=== PATIENT | female | born 1950 | race Caucasian/White ===

== ENCOUNTER → 2016-12-05 | Outpatient (CLI) | payer OTHER ==
[~2016-12-05] MED LIST: CALC600T9 PO; COEN100C7 PEG; FLAX100019 PO; JUICE PLUS PO; LATA0.009 INT OCU; LUTE20TA PO; MELA1CAP PO; MULT-506 PO
[2016-12-05 10:14] LABS: CHOLESTEROL/HDL RATIO 2.4
== END | disposition home or self-care (01) ==
LOC: C.LAB 07:09
PROVIDERS: ATTEND Nurse Practitioner Adult Health
DX: Z11.59 Encounter for screening for other viral diseases (principal); E78.5 Hyperlipidemia, unspecified

== ENCOUNTER → 2016-12-30 | Outpatient (CLI) | payer OTHER ==
--- NOTE | 2016-12-31 13:55 | MAMMOGRAPHY REPORT ---
BILATERAL DIGITAL SCREENING MAMMOGRAM WITH CAD: 12/30/2016 CLINICAL HISTORY: Routine screening. Patient has no complaints. TECHNIQUE: Bilateral CC, MLO and left XCCL views were obtained. Current study was also evaluated wi th a Computer Aided Detection (CAD) system. COMPARISON: Comparison is made to exams dated: 12/27/2015 mammogram, 12/25/2014 mammogram, 09/13/2013 mammogram, 07/09/2012 mammogram, 06/27/2011 mammogram, and 06/20/2010 mammogram - [facility]. BREAST COMPOSITION: There are scattered areas of fibroglandular density in both breasts. FINDINGS: There are scattered stable benign-appearing microcalcifications bilaterally. No new suspi cious mass, architectural distortion or cluster of microcalcifications is seen. IMPRESSION: ACR BI-RADS CATEGORY 1: NEGATIVE There is no mammographic evidence of malignancy. A 1 year screening mammogram is recommended. The p atient will receive written notification of the results. Approximately 10% of breast cancers are not detected with mammography. A negative mammographic repor t should not delay biopsy if a clinically suggestive mass is present. Carmen Hammer M.D. ay/:12/30/2016 16:45:50 Mental Health Clinician: Britt KIRKPATRICK(Rafael)(Kamila)(BD), [facility] letter sent: Normal 1/2 BI-RADS Code: ACR BI-RADS Category 1: Negative
== END | disposition home or self-care (01) ==
LOC: C.MAMM 08:38
PROVIDERS: ATTEND Obstetrics & Gynecology
DX: Z12.31 Encounter for screening mammogram for malignant neoplasm of breast (principal)

== ENCOUNTER → 2017-02-18 | Outpatient (CLI) | payer OTHER ==
--- NOTE | 2017-02-18 15:35 | DIAGNOSTIC IMAGING REPORT ---
LEFT FINGER(S) MIN 2 VIEWS ROUTINE CLINICAL HISTORY: LEFT FINGER LIBRARY pain COMPARISON: None. DISCUSSION: Moderate degenerative change distal interphalangeal joint. Tiny avulsion base distal phalanx considered well corticated and nonacute. Considerable degenerative change first carpometacarpal joint. There is no evidence for soft tissue swelling. IMPRESSION: Degenerative change. No acute bony abnormality. Electronically signed by: Gordon Ace M.D. 02/18/2017 3:34 PM Dictated Date/Time: 02/18/2017 3:32 PM
== END | disposition home or self-care (01) ==
LOC: C.RAD 15:10
PROVIDERS: ATTEND Physician Assistant Surgical
DX: S69.92XA Unspecified injury of left wrist, hand and finger(s), initial encounter (principal); W23.0XXA Caught, crushed, jammed, or pinched between moving objects, initial encounter

== ENCOUNTER → 2017-05-05 | Outpatient (CLI) | payer OTHER ==
[~2017-05-05] MED LIST changes: +OPTIRAY 320 IV PRN
--- NOTE | 2017-05-05 07:51 | DIAGNOSTIC IMAGING REPORT ---
(CHEST) THORAX WITH CLINICAL HISTORY: 67 years-old Female presenting with abnormal chest x-ray with multiple nodules, sarcoidosis. TECHNIQUE: Multidetector CT imaging of the chest was performed after the administration of intravenous contrast. IV contrast: 93 mL of Optiray 320. A dose lowering technique was used consistent with the principles of ALARA (as low as reasonably achievable). COMPARISON: 05/01/2016. CT DOSE (mGy.cm): The estimated cumulative dose is 285.36 mGy.cm. FINDINGS: Black Leather Trimmer topogram: Unremarkable. On soft tissue windows, prominent 1.9 cm heterogeneously hypodense nodule at the inferior pole of the right lobe of the thyroid, which contains a mural enhancing component (series 4 image 35). Additional right thyroid lobe nodule also noted. No axillary, supraclavicular, hilar, or mediastinal lymphadenopathy. Mild atherosclerosis of the aortic arch. Normal heart size. Coronary artery calcification. No pericardial or pleural effusion. Cholecystectomy clips noted. On lung windows, minimal dependent groundglass and reticular opacities, likely atelectasis. Apical predominant bandlike and peripheral wedgelike opacities unchanged from prior, consistent with scarring. Mild emphysema. Old calcified granulomas noted. Slightly spiculated solid 8 mm pulmonary nodule in the superior segment of the right lower lobe is unchanged in size from prior (series 4 image 129). Airways patent. On bone windows, mild degenerative changes of the spine. IMPRESSION: 1. Persistent apical predominant scarring. 2. Unchanged appearance of the slightly spiculated solid 8 mm pulmonary nodule in the superior segment of the right lower lobe. This is unchanged since 05/01/2016. Follow-up per Fleischner Society 2017 recommendations below. 3. Mild emphysema. Please refer to below summary of Fleischner Society 2017 recommendations for follow-up of incidental CT nodules (H Katelin et al. Guidelines for management of incidental pulmonary nodules detected on CT images: From the Fleischner Society 2017. Radiology 2017; 284: 228-243.) SOLID NODULES Single nodule; size <6 mm * Low risk patients: No routine follow-up * High risk patients: Optional CT at 12 months Single nodule; size 6-8 mm * Low risk patients: CT at 6-12 months, then consider CT at 18-24 months * High risk patients: CT at 6-12 months, then at 18-24 months Single nodule; size >8 mm * Either low or high risk patients: Considered CT at 3 months, PET/CT, or tissue sampling Multiple nodules; size <6 mm * Low risk patients: No routine follow up * High risk patients: Optional CT at 12 months Multiple nodules; size 6-8 mm * Low risk patients: CT at 3-6 months, then consider CT at 18-24 months * High risk patients: CT at 3-6 months, then at 18-24 months Multiple nodules; size >8 mm * Low risk patients: CT at 3-6 months, then consider at 18-24 months * High risk patients: CT at 3-6 months, then at 18-24 months Note: These guidelines apply to incidental nodules. These guidelines did not apply to patients younger than 35 years, immunocompromised patients, or patients with cancer. * Low risk patients: Minimal or absent history of smoking and/or other known risk factors * High risk patients: History of smoking, exposure to other carcinogens, emphysema, fibrosis, upper lobe location, family history of lung cancer, etc. * If a nodule up to 8 mm is partly solid or is ground glass further follow-up is required after 24 months to exclude possible slow growing adenocarcinoma SUBSOLID NODULES Single ground-glass nodule * Nodule size < 6 mm: No routine follow-up * Nodule size > or = 6 mm: CT at 6-12 months to confirm persistence, then CT every 2 years until 5 years Single part-solid nodule * Nodule size < 6 mm: No routine follow-up * Nodules size > or = 6 mm: CT at 3-6 months to confirm persistence. If unchanged and solid component remains < 6 mm, annual CT should be performed for 5 years Multiple nodules * Nodule size < 6 mm: CT at 3-6 months. If stable, consider CT at 2 and 4 years. * Nodules size > or = 6 mm: CT at 3-6 months. Subsequent management based on the most suspicious nodule(s) Electronically signed by: Brice Vyas M.D. 05/05/2017 7:50 AM Dictated Date/Time: 05/05/2017 7:43 AM
== END | disposition home or self-care (01) ==
LOC: C.CTS 06:44
PROVIDERS: ATTEND Internal Medicine Pulmonary Disease
DX: D86.9 Sarcoidosis, unspecified (principal); R91.8 Other nonspecific abnormal finding of lung field

== ENCOUNTER → 2017-05-27 | Outpatient (CLI) | payer OTHER ==
[~2017-05-27] MED LIST changes: -OPTIRAY 320 IV PRN
[2017-05-27 10:17] LABS: ALT/SGPT 38 U/L (12-78); AST/SGOT 18 U/L (15-37); BLOOD UREA NITROGEN 15 mg/dl (7-18); BUN/CREATININE RATIO 15.4 (10-20); CARBON DIOXIDE 28 mmol/L (21-32); CHLORIDE 108 mmol/L (98-107); GLUCOSE 99 mg/dl (70-99); POTASSIUM 3.9 mmol/L (3.5-5.1); SODIUM 141 mmol/L (136-145)
[2017-05-27 10:20] LABS: ALB/GLOB RATIO 1.3 (0.9-2); ALKALINE PHOSPHATASE 76 U/L (45-117); CHOLESTEROL 184 mg/dl (0-200); CHOLESTEROL/HDL RATIO 2.3; HDL CHOLESTEROL 80 mg/dl; LDL CHOLESTEROL CALCULATED 86 mg/dl; TRIGLYCERIDES 90 mg/dl (0-150); VERY LOW DENSITY LIPOPROT CALC 18 mg/dl
== END | disposition home or self-care (01) ==
LOC: C.LAB 07:14
PROVIDERS: ATTEND Nurse Practitioner Adult Health
DX: E78.5 Hyperlipidemia, unspecified (principal)

== ENCOUNTER → 2017-07-29 | Outpatient (CLI) | payer OTHER ==
[2017-07-29 09:39] LABS: BASO % 0.6 %; BASO ABS # 0.03 K/uL (0-0.2); COMPLETE YES; EOS % 0.8 %; HEMATOCRIT 39.8 % (37-47); LYMPH % 34.8 %; LYMPH ABS # 1.71 K/uL (1.2-3.4); MEAN CELL VOLUME 99.5 fL (80-100); MEAN CORPUSCULAR HGB CONC 33.2 g/dl (32-36); MEAN PLATELET VOLUME 10.1 fL (7.4-10.4); MONO % 7.1 %; NEUT % 56.7 %; PLATELET COUNT 282 K/uL (130-400); WHITE BLOOD COUNT 4.91 K/uL (4.8-10.8)
[2017-07-29 09:44] LABS: PROTHROMBIN TIME (PATIENT) 10.3 SECONDS (9.0-12.0)
[2017-07-29 09:56] LABS: ALT/SGPT 43 U/L (12-78); BLOOD UREA NITROGEN 20 mg/dl (7-18); BUN/CREATININE RATIO 18.7 (10-20); CALCIUM 9.4 mg/dl (8.5-10.1); CARBON DIOXIDE 25 mmol/L (21-32); CHLORIDE 107 mmol/L (98-107); CREATININE 1.08 mg/dl (0.60-1.20); GLUCOSE 89 mg/dl (70-99); POTASSIUM 3.8 mmol/L (3.5-5.1); SODIUM 141 mmol/L (136-145)
[2017-07-29 09:58] LABS: ALB/GLOB RATIO 1.1 (0.9-2); ALKALINE PHOSPHATASE 95 U/L (45-117); AST/SGOT 28 U/L (15-37)
== END | disposition home or self-care (01) ==
LOC: C.LAB 07:01
PROVIDERS: ATTEND Nurse Practitioner Adult Health
DX: Z01.818 Encounter for other preprocedural examination (principal)

== ENCOUNTER → 2017-12-31 | Outpatient (CLI) | payer OTHER ==
--- NOTE | 2018-01-04 08:08 | MAMMOGRAPHY REPORT ---
BILATERAL DIGITAL SCREENING MAMMOGRAM TOMOSYNTHESIS WITH CAD: 12/31/2017 CLINICAL HISTORY: Routine screening. Patient has no complaints. TECHNIQUE: Breast tomosynthesis in addition to standard 2D mammography was performed. Current study was also evaluated with a Computer Aided Detection (CAD) system. COMPARISON: Comparison is made to exams dated: 12/30/2016 mammogram, 12/27/2015 mammogram, 12/25/2014 m ammogram, 09/13/2013 mammogram, 07/09/2012 mammogram, and 06/27/2011 mammogram - [facility]. BREAST COMPOSITION: There are scattered areas of fibroglandular density in both breasts. FINDINGS: No suspicious masses, calcifications, or areas of architectural distortion are noted in ei ther breast. There has been no significant interval change compared to prior exams. Scattered bilater al benign-appearing calcifications are not significantly changed. Asymmetry in the left superior dea ast on the MLO view is stable compared to prior exams. IMPRESSION: ACR BI-RADS CATEGORY 2: BENIGN There is no mammographic evidence of malignancy. A 1 year screening mammogram is recommended. The pa tient will receive written notification of the results. Approximately 10% of breast cancers are not detected with mammography. A negative mammographic report should not delay biopsy if a clinically suggestive mass is present. Dilma Dao M.D. /:12/31/2017 15:31:16 Veterinary Technologist: Bharati JONAS)(Kamila), [facility] letter sent: Normal 1/2 BI-RADS Code: ACR BI-RADS Category 2: Benign
== END | disposition home or self-care (01) ==
LOC: C.MAMM 08:31
PROVIDERS: ATTEND Obstetrics & Gynecology
DX: Z12.31 Encounter for screening mammogram for malignant neoplasm of breast (principal)

== ENCOUNTER 2018-04-20 09:01 | Inpatient (IN) | payer OTHER ==
[~2018-04-20] VITALS: Ht 172.7 cm; Wt 82.0 kg
[~2018-04-20 09:01] MED LIST changes: -BACL10TA PO; -FENTANYL CITRATE INJ 50 MCG/1 ML 2 ML VIAL ONE; -FLUT0.15; -IBUP-1050 PO; -OPTIRAY 320 IV PRN; -PANT40TA PO; -RANI150T85 PO; -ULT50X PO
[2018-04-20] MEDS ORDERED: SODIUM CHLORIDE 0.9% 1000ML 1,000 ML IV STA (09:16)
[2018-04-20] MEDS ORDERED: HYDROmorphone INJ 1 MG/ML SYR IV STA (09:16)
[2018-04-20] MEDS ORDERED: ONDANSETRON INJ 2 MG/ML 2 ML VIAL IV STA (09:16)
[2018-04-20] MEDS ORDERED: DEXAMETHASONE INJ 10 MG in SYRINGE 0 ML IV STA (09:16)
--- NOTE | 2018-04-20 09:27 | EMERGENCY ROOM VISIT NOTE ---
History Report prepared by Yun: Deisy Desai Under the Supervision of: Dr. Jett Bella M.D. First contact with patient: 09:10 Chief Complaint: BACK PAIN Stated Complaint: BACK PAIN, NUMBNESS IN LEG History of Present Illness The patient is a 68 year old female who presents to the Emergency Room with a referral after receiving an MRI this morning from her Laura Ontiveros, her PCP PA. She states that over the past week she has had worsening pain radiating down her back to her buttocks. She reports that she also has numbness, "tingling ," and pain in her right thigh and her left garg. Pain radiates down her back when she walks. The patient reports that she fell on her buttocks in October and the pain was resolved a few weeks later, however, the pain returned at the end of December/beginning of January. She was recently put on Baclofen and a prednisone taper, however, she reports that the prednisone did not help relieve her symptoms. She reports that she took baclofen this morning as well as 2 ibuprofen. She also states that she is on Protonix. The patient also reports previously having her gallbladder removed and having both of her feet operated on. Source of History: patient Onset: the past week Position: back Timing: worsening Modifying Factors (Worsening): movement Associated Symptoms: + numbness (right thigh and left garg) Review of Systems See HPI for pertinent positives & negatives. A total of 10 systems reviewed and were otherwise negative. Past Medical & Surgical Medical Problems: (1) Lumbar stenosis with neurogenic claudication Family History Omitted secondary to patient age. Social History Smoking Status: Never Smoker Occupation Status: retired Current/Historical Medications Scheduled Baclofen (Lioresal), 10 MG PO TID Coenzyme Q10 (Ubidecarenone) (Coq10), 100 MG PEG DAILY Flaxseed (Linseed) (Flaxseed Oil 1000 mg), 1 CAP PO BID Lutein (Lutein), 20 MG PO DAILY Pantoprazole (Protonix), 40 MG PO DAILY Ranitidine (Zantac), 1 TAB PO BID [Juice Plus], 1 CAP PO DAILY Miscellaneous Medications Fluticasone Propionate (Nasal) (Flonase Allergy Relief), 50 MCG NA Ibuprofen (Advil), 200 MG PO Allergies Coded Allergies: Adhesives (Unverified Allergy, Mild, RASH, 01/30/15) Acetaminophen (Verified Adverse Reaction, Intermediate, NAUSEA AND VOMITING, 04/20/18) Oxycodone (Verified Adverse Reaction, Intermediate, NAUSEA AND VOMITING, ) Physical Exam Vital Signs Date Time Temp Pulse Resp B/P (MAP) Pulse Ox O2 Delivery O2 Flow Rate FiO2 04/20/18 09:41 73 04/20/18 09:03 36.8 88 18 161/103 99 Room Air Physical Exam GENERAL: Awake, alert, well-appearing, in no acute distress HENT: Normocephalic, atraumatic. Oropharynx unremarkable. EYES: Normal conjunctiva. Sclera non-icteric. NECK: Supple. No nuchal rigidity. FROM. No JVD. RESPIRATORY: Clear to auscultation. CARDIAC: Regular rate, normal rhythm. Extremities warm and well perfused. Pulses equal. ABDOMEN: Soft, non-distended. No tenderness to palpation. No rebound or guarding. No masses. RECTAL: Deferred. MUSCULOSKELETAL: Chest examination reveals no tenderness. The back is symmetrical on inspection without obvious abnormality. There is no CVA tenderness to palpation. No joint edema. LOWER EXTREMITIES: Calves are equal size bilaterally and non-tender. No edema. No discoloration. NEURO: Normal sensorium. No motor deficits noted. Able to walk on tip-toes and heels. Numbness sensation to right outer thigh and left calf. No loss of bladder control. SKIN: No rash or jaundice noted. Medical Decision & Procedures ER Provider Diagnostic Interpretation: Radiology results as stated below per my review and radiologist interpretation: CT (CHEST) THORAX WITH CT DOSE: 332.07 mGy.cm HISTORY: Sarcoid D86.9 Sarcoidosis TECHNIQUE: Multiaxial CT images of the chest were performed following the intravenous administration of contrast. A dose lowering technique was utilized adhering to the principles of ALARA. COMPARISON: 05/05/2017 FINDINGS: Waxing and waning parenchymal nodularity the nodular density previously described superior segment right lower lobe has resolved. There is been interval development of a new 8 mm nodular density posterior aspect right lower lobe best seen transaxial image 166. Apical pleural thickening unchanged. No significant mediastinal or hilar adenopathy. IMPRESSION: 1. Waxing and waning right lower lobe parenchymal nodularity. 2. Six-month follow-up is suggested 3. Study is otherwise negative. The above report was generated using voice recognition software. It may contain grammatical, syntax or spelling errors. Electronically signed by: Gordon Ace M.D. 04/20/2018 7:35 AM Dictated Date/Time: 04/20/2018 7:18 AM MRI OF THE LUMBAR SPINE WITHOUT CONTRAST CLINICAL HISTORY: Lumbar radiculopathy. Low back pain radiating into each lower extremity flow extremity numbness and tingling. Fall in October. COMPARISON STUDY: Lumbar spine radiograph March 31, 2018. TECHNIQUE: Utilizing a 1.5 Marilee magnet and dedicated coil, multiplanar, multiecho imaging of the lumbar spine was performed without IV contrast. FINDINGS: For purposes of numbering on this exam, the L5-S1 disc space is assigned to axial image 25 of 28. Note is made of 8 mm of anterolisthesis of L4 and L5 likely due to facet arthrosis. Note is made of a mild compression fracture of the L5 vertebral body with 20% loss of vertebral body height centrally. There is marrow edema. There is minimal prevertebral edema. Minimal retropulsion of 2 mm at the superior endplate is noted. There is also a mild fracture involving the inferior endplate of L4 with without significant vertebral body height loss. No additional compression fractures are present. Conus terminates at the L2 level. Redundancy of the lumbar nerve roots is noted due to severe central canal stenosis at L4-L5. A hemangioma is noted within the T12 vertebral body. L1-2: The central canal and neural foramen are patent. L2-3: The central canal and neural foramen are patent. L3-4: There is facet arthrosis with ligamentous hypertrophy. Central canal neural foramen are patent. L4-5: There is 8 mm of anterolisthesis of L4 and L5 due to facet arthrosis. There is slight retropulsion of the superior endplate of L5 due to a compression fracture which is superimposed upon facet arthrosis with ligamentous hypertrophy and uncovering of the disc. These findings result in severe central canal stenosis with compression of the cauda equina. There is mild bilateral neural foraminal stenosis. L5-S1: The central canal and neural foramen are patent. IMPRESSION: 1. Severe central canal stenosis with cauda equina compression at L4-L5. In large part, the findings are likely chronic, related to grade I anterolisthesis with uncovering of the disc, ligamentous hypertrophy and facet arthrosis. However, slight retropulsion of the superior endplate of L5 due to compression fracture increases severity of stenosis. If persistent symptoms, surgical consultation is recommended. Discussed with Wendie Vo at time of dictation. 2. Mild L5 compression fracture which is likely subacute to acute. Minimal inferior endplate compression fracture of L4 without significant vertebral body height loss. Electronically signed by: Brett Schulz M.D. 04/20/2018 8:33 AM Dictated Date/Time: 04/20/2018 7:51 AM Laboratory Results 04/20/18 09:30 Red Blood Count 3.81, Mean Corpuscular Volume 98.7, Mean Corpuscular Hemoglobin 33.3, Mean Corpuscular Hemoglobin Concent 33.8, Mean Platelet Volume 9.9, Neutrophils (%) (Auto) 67.7, Lymphocytes (%) (Auto) 25.3, Monocytes (%) (Auto) 5.7, Eosinophils (%) (Auto) 0.7, Basophils (%) (Auto) 0.3, Neutrophils # (Auto) 5.81, Lymphocytes # (Auto) 2.18, Monocytes # (Auto) 0.49, Eosinophils # (Auto) 0.06, Basophils # (Auto) 0.03 Test 04/20/18 09:30 04/20/18 09:35 White Blood Count 8.60 K/uL (4.8-10.8) Red Blood Count 3.81 M/uL (4.2-5.4) Hemoglobin 12.7 g/dL (12.0-16.0) Hematocrit 37.6 % (37-47) Mean Corpuscular Volume 98.7 fL (80-100) Mean Corpuscular Hemoglobin 33.3 pg (25-34) Mean Corpuscular Hemoglobin Concent 33.8 g/dl (32-36) Platelet Count 252 K/uL (130-400) Mean Platelet Volume 9.9 fL (7.4-10.4) Neutrophils (%) (Auto) 67.7 % Lymphocytes (%) (Auto) 25.3 % Monocytes (%) (Auto) 5.7 % Eosinophils (%) (Auto) 0.7 % Basophils (%) (Auto) 0.3 % Neutrophils # (Auto) 5.81 K/uL (1.4-6.5) Lymphocytes # (Auto) 2.18 K/uL (1.2-3.4) Monocytes # (Auto) 0.49 K/uL (0.11-0.59) Eosinophils # (Auto) 0.06 K/uL (0-0.5) Basophils # (Auto) 0.03 K/uL (0-0.2) RDW Standard Deviation 46.9 fL (36.4-46.3) RDW Coefficient of Variation 13.0 % (11.5-14.5) Immature Granulocyte % (Auto) 0.3 % Immature Granulocyte # (Auto) 0.03 K/uL (0.00-0.02) Total Bilirubin 0.6 mg/dl (0.2-1) Direct Bilirubin 0.2 mg/dl (0-0.2) Aspartate Amino Transf (AST/SGOT) 9 U/L (15-37) Alanine Aminotransferase (ALT/SGPT) 22 U/L (12-78) Alkaline Phosphatase 146 U/L (45-117) Total Protein 7.1 gm/dl (6.4-8.2) Albumin 3.5 gm/dl (3.4-5.0) Lipase 145 U/L (73-393) Urine Color YELLOW Urine Appearance CLEAR (CLEAR) Urine pH 5.0 (4.5-7.5) Urine Specific [place] > 1.045 (1.000-1.030) Urine Protein NEG (NEG) Urine Glucose (UA) NEG (NEG) Urine Ketones NEG (NEG) Urine Occult Blood NEG (NEG) Urine Nitrite NEG (NEG) Urine Bilirubin NEG (NEG) Urine Urobilinogen NEG (NEG) Urine Leukocyte Esterase TRACE (NEG) Urine WBC (Auto) 1-5 /hpf (0-5) Urine RBC (Auto) 0-4 /hpf (0-4) Urine Hyaline Casts (Auto) 1-5 /lpf (0-5) Urine Epithelial Cells (Auto) 10-20 /lpf (0-5) Urine Bacteria (Auto) NEG (NEG) Labs reviewed by ED physician. Medications Administered Medications (Trade) Dose Ordered Sig/Bharati Route Start Time Stop Time Status Last Admin Dose Admin Sodium Chloride 1,000 ml @ 999 mls/hr Q1H1M STAT IV 04/20/18 09:16 04/20/18 10:16 DC 04/20/18 09:34 999 MLS/HR Hydromorphone HCl (Dilaudid Inj) 1 mg NOW STAT IV 04/20/18 09:16 04/20/18 09:18 DC 04/20/18 09:34 1 MG Ondansetron HCl (Zofran Inj) 4 mg NOW STAT IV 04/20/18 09:16 8 09:18 DC 04/20/18 09:34 4 MG Dexamethasone Sodium Phosphate (Decadron Inj) 10 mg STK-MED ONCE .ROUTE 04/20/18 09:43 04/20/18 09:44 DC 04/20/18 09:44 10 MG Ondansetron HCl (Zofran Inj) 4 mg Q6H PRN IV 04/20/18 09:45 05/20/18 09:44 04/21/18 07:31 4 MG Lorazepam (Ativan Tab) 1 mg Q6H PRN PO 04/20/18 09:45 05/20/18 09:44 04/20/18 21:49 1 MG Tramadol HCl (Ultram Tab) 50 mg Q8H PRN PO 04/20/18 09:45 05/20/18 09:44 04/21/18 07:37 50 MG ED Course 911: Past medical records reviewed. The patient was evaluated in room A11B. A complete history and physical examination was performed. 0931: I spoke with Dr. Palencia of orthopedics about this case. He is aware of the patient. 0953: I spoke with [facility]. [facility] about the case. He will be admitting the patient. Medical Decision This is a 68-year-old female who presents the emergency department over concerns of an outpatient MRI the patient is complaining of severe pain to her right lower leg and left lower leg. She is able to walk on her tiptoes and her heels. She has had no loss of bowel or bladder control. She describes a numb sensation to her right thigh as well as her left calf. She was given normal saline bolus as well as Dilaudid. I did discuss the case with Dr. Palencia who agreed to admit the patient. Medication Reconcilliation Current Medication List: was personally reviewed by me Blood Pressure Screening Patient's blood pressure: Elevated blood pressure Referred to hospitalist. Consults Time Called: [phone] Consulting Physician: Dr. Palencia-Orthopedics Returned Call: [phone] Palencia of orthopedics about this case. He is aware of the patient. Impression Primary Impression: Slipped intervertebral disc Scribe Attestation The scribe's documentation has been prepared under my direction and personally reviewed by me in its entirety. I confirm that the note above accurately reflects all work, treatment, procedures, and medical decision making performed by me. Departure Information Dispostion Being Evaluated By Hospitalist Referrals Jose Donohue DMeganOMegan (PCP) Patient Instructions My [facility] Problem Qualifiers Primary Impression: Slipped intervertebral disc Spinal region: lumbar Qualified Codes: M51.26 - Other intervertebral disc displacement, lumbar region
[2018-04-20] MEDS ORDERED: DEXAMETHASONE SOD INJ 10 MG/ML VIAL ONE (09:43)
[2018-04-20] MEDS ORDERED: LORAZEPAM INJ 1 MG in SYRINGE 0 ML IV PRN (09:45)
[2018-04-20 09:47] LABS: BASO % 0.3 %; BASO ABS # 0.03 K/uL (0-0.2); EOS % 0.7 %; EOS ABS # 0.06 K/uL (0-0.5); HEMATOCRIT 37.6 % (37-47); HEMOGLOBIN 12.7 g/dL (12.0-16.0); IG# 0.03 K/uL (0.00-0.02); LYMPH % 25.3 %; LYMPH ABS # 2.18 K/uL (1.2-3.4); MEAN CELL VOLUME 98.7 fL (80-100); MEAN CORPUSCULAR HEMOGLOBIN 33.3 pg (25-34); MEAN CORPUSCULAR HGB CONC 33.8 g/dl (32-36); MEAN PLATELET VOLUME 9.9 fL (7.4-10.4); MONO % 5.7 %; MONO ABS # 0.49 K/uL (0.11-0.59); NEUT % 67.7 %; NEUT ABS # 5.81 K/uL (1.4-6.5); PLATELET COUNT 252 K/uL (130-400); RED CELL DISTRIBUTION WIDTH SD 46.9 fL (36.4-46.3)
[2018-04-20] MEDS ORDERED: RANI150T85 PO ×2 (10:04)
[2018-04-20] MEDS ORDERED: IBUP-1050 PO ×2 (10:04)
[2018-04-20] MEDS ORDERED: BACL10TA PO ×2 (10:04)
[2018-04-20] MEDS ORDERED: FLUT0.15 ×2 (10:04)
[2018-04-20] MEDS ORDERED: PANT40TA PO ×2 (10:05)
[2018-04-20 10:09] LABS: ALBUMIN 3.5 gm/dl (3.4-5.0); CALCIUM 8.7 mg/dl (8.5-10.1); CREATININE 1.34 mg/dl (0.60-1.20); POTASSIUM 3.7 mmol/L (3.5-5.1); TOTAL PROTEIN 7.1 gm/dl (6.4-8.2)
--- NOTE | 2018-04-20 11:10 | DIAGNOSTIC IMAGING REPORT ---
BILATERAL LOWER EXTREMITY VENOUS DOPPLER CLINICAL HISTORY: Bilateral leg pain. COMPARISON STUDY: No previous studies for comparison. TECHNIQUE: Sonography of the deep venous system of the bilateral lower extremities was performed. Compression and augmentation were evaluated. FINDINGS: The bilateral common femoral, superficial femoral and popliteal veins were compressible. Augmentation was normal. Flow was shown within the deep calf vessels. IMPRESSION: No evidence of deep venous thrombus within the bilateral lower extremities. Electronically signed by: Brett Schulz M.D. 04/20/2018 11:09 AM Dictated Date/Time: 04/20/2018 11:08 AM
[2018-04-20 11:12] VITALS: BP 128/79; PULSE 60; TEMP 37; O2SAT 95; Ht 172.7 cm; Wt 82.0 kg
--- NOTE | 2018-04-20 11:36 | Anesthesiology Progress Note ---
Anesthesia Progress Note Date of Service Apr 20, 2018. Progress Notes Patient for lumbar spine surgery tomorrow. History of sarcoid and GERD. Creatinine slightly elevated but no older labs for comparison. No apparent contraindication to surgery though her ECG has not been done yet.
--- NOTE | 2018-04-20 12:50 | Medical Consult ---
Consultation Date of Consultation: Apr 20, 2018. Attending Physician: Ken Palencia D.O. Reason for Consultation: Medical management History of Present Illness Patient is a pleasant 68yo female with history of Sarcoidosis presenting with severe, progressive low back pain. Patient states that in October she was walking backwards and tripped over a stone causing her to fall. She had back pain for approximately 3 weeks after her fall which resolved entirely with pain management and conservative measures at home. However, her her lumbar back pain returned and has been worsening over the last three months. She developed numbness and tingling in the legs 3 weeks ago which started at the lateral portion of her right thigh then progressed to involve the top of her right thigh and the lateral portion of her left and foot. She was seen by her PCP Dr. Donohue and received osteopathic manipulation with minimal relief. She returned to his office with persistent pain and was prescribed Baclofen and a Prednisone taper which she completed last week. She was seen again today and had an MRI performed which revealed severe canal stenosis with cauda equina compression at L4-L5, likely chronic, grade 1 anterolisthesis as well as acute/subacute mild L5 compression fracture. Patient was called and told to come to the ER. She reports severe pain with walking and sitting. Denies weakness, foot drop, bowel or bladder incontinence. No fevers or chills. No additional complaints at this time. ER Course: Dexamethasone 10mg IV NSS x 1 liter Zofran 4mg IV Dilaudid 1mg IV Past Medical/Surgical History Past Medical History: Sarcoidosis - diagnosed in 1969's incidentally on a pre-employment physical and LN biopsy, patient on surveillance with q [address] scan, follows with Dr. Dorsey. Has never been treated GERD Lumbar stenosis Neurogenic claudication Arthritis Past Surgical History: Cholecystectomy Foot x 3 [address] biopsy Cataracts Family History FH: CAD (coronary artery disease) FH: dementia FH: diabetes mellitus FH: hypertension FH: thyroid cancer Social History Smoking Status: Former Smoker Smokeless Tobacco Use: No Alcohol Use: socially Drug Use: none Marital Status: Housing Status: lives alone Occupation Status: retired Allergies Coded Allergies: Adhesives (Unverified Allergy, Mild, RASH, 01/30/15) Acetaminophen (Verified Adverse Reaction, Intermediate, NAUSEA AND VOMITING, 04/20/18) Oxycodone (Verified Adverse Reaction, Intermediate, NAUSEA AND VOMITING, ) Home Medications Baclofen 10mg po TID Protonix 40mg po daily Ranitidine 150mg po daily Flonase 50mcg daily Tylenol PRN Ibuprofen PRN Coenzyme Q10 Flaxseed Vitamin D Juice plus supplement Current Inpatient Medications Current Inpatient Medications Medications (Trade) Dose Ordered Sig/Bharati Route Start Time Stop Time Status Last Admin Dose Admin Docusate Sodium (coLACE CAP) 100 mg BID PO 04/20/18 21:00 05/20/18 20:59 Ondansetron HCl (Zofran Inj) 4 mg Q6H PRN IV 04/20/18 09:45 05/20/18 09:44 Lorazepam (Ativan Tab) 1 mg Q6H PRN PO 04/20/18 09:45 05/20/18 09:44 Lorazepam 1 mg/ Syringe 0.5 ml @ 1 mls/min Q6H PRN IV 04/20/18 09:45 05/20/18 09:44 Tramadol HCl (Ultram Tab) 50 mg Q8H PRN PO 04/20/18 09:45 05/20/18 09:44 Latanoprost (Xalatan Oph Soln) 1 drops DAILY OPB 04/21/18 09:00 05/21/18 08:59 Multivitamins (Multivitamin Tab) 1 tab DAILY PO 04/21/18 09:00 05/21/18 08:59 Cefazolin Sodium 15 ml @ 3.75 mls/ min PREOP IV 04/21/18 06:00 04/21/18 18:00 Review of Systems Constitutional: No fever, No chills, No sweats, No weight loss, No fatigue Eyes: No worsening of vision ENT: No sore throat, No trouble swallowing Respiratory: No cough, No sputum, No wheezing, No shortness of breath, No dyspnea on exertion, No dyspnea at rest Cardiovascular: No chest pain, No palpitations Abdomen: No pain, No nausea, No vomiting, No diarrhea, No constipation Musculoskeletal: No joint pain, No muscle pain Genitourinary - Female: No dysuria, No urinary frequency Neurologic: + numbness/tingling, No weakness, No balance problems Hematologic / Lymphatic: No abnormal bleeding/bruising Integumentary: No rash Physical Exam Date Time Temp Pulse Resp B/P (MAP) Pulse Ox O2 Delivery O2 Flow Rate FiO2 8/7/18 11:12 37.0 60 18 128/79 95 Room Air 04/20/18 11:02 61 20 139/78 96 04/20/18 10:02 65 18 135/69 96 Room Air 04/20/18 09:41 73 04/20/18 09:03 36.8 88 18 161/103 99 Room Air General: patient resting comfortably in bed, NAD, AA&O x 4 Skin: warm, dry, intact, no rashes or lesions HEENT: NC/AT, PERRL, EOMI, anicteric sclera, conjunctiva without injection, nares patent, moist mucus membranes, no oropharyngeal lesions, neck supple, trachea midline, no thyromegaly, no LAD Heart: +S1/S2, regular with ectopy, no m/r/g Lungs: equal air entry bilaterally, no rales/rhonchi/wheezes Abdomen: soft, NT/ND, no masses/organomegaly/ascites Extremities: warm, well perfused, no clubbing/cyanosis or edema, 2+ palpable pulses in UE/LE bilaterally Neuro: MS 5/5 in bilateral UEs, 5/5 in lower extremities but limited secondary to pain, diminished sensation to light touch on anterior and lateral left thigh , lateral portion of right leg and foot, brisk patellar reflexes bilaterally, rectal deferred Laboratory Results Last 24 Hours Test 04/20/18 09:30 04/20/18 09:35 White Blood Count 8.60 K/uL Red Blood Count 3.81 M/uL Hemoglobin 12.7 g/dL Hematocrit 37.6 % Mean Corpuscular Volume 98.7 fL Mean Corpuscular Hemoglobin 33.3 pg Mean Corpuscular Hemoglobin Concent 33.8 g/dl Platelet Count 252 K/uL Mean Platelet Volume 9.9 fL Neutrophils (%) (Auto) 67.7 % Lymphocytes (%) (Auto) 25.3 % Monocytes (%) (Auto) 5.7 % Eosinophils (%) (Auto) 0.7 % Basophils (%) (Auto) 0.3 % Neutrophils # (Auto) 5.81 K/uL Lymphocytes # (Auto) 2.18 K/uL Monocytes # (Auto) 0.49 K/uL Eosinophils # (Auto) 0.06 K/uL Basophils # (Auto) 0.03 K/uL RDW Standard Deviation 46.9 fL RDW Coefficient of Variation 13.0 % Immature Granulocyte % (Auto) 0.3 % Immature Granulocyte # (Auto) 0.03 K/uL Sodium Level 134 mmol/L Potassium Level 3.7 mmol/L Chloride Level 105 mmol/L Carbon Dioxide Level 20 mmol/L Anion Gap 9.0 mmol/L Blood Urea Nitrogen 10 mg/dl Creatinine 1.34 mg/dl Est Creatinine Clear Calc Drug Dose 45.7 ml/min Estimated GFR () 47.4 Estimated GFR (Non- 40.9 BUN/Creatinine Ratio 7.3 Random Glucose 112 mg/dl Calcium Level 8.7 mg/dl Total Bilirubin 0.6 mg/dl Direct Bilirubin 0.2 mg/dl Aspartate Amino Transf (AST/SGOT) 9 U/L Alanine Aminotransferase (ALT/SGPT) 22 U/L Alkaline Phosphatase 146 U/L Total Protein 7.1 gm/dl Albumin 3.5 gm/dl Lipase 145 U/L Urine Color YELLOW Urine Appearance CLEAR Urine pH 5.0 Urine Specific [place] > 1.045 Urine Protein NEG Urine Glucose (UA) NEG Urine Ketones NEG Urine Occult Blood NEG Urine Nitrite NEG Urine Bilirubin NEG Urine Urobilinogen NEG Urine Leukocyte Esterase TRACE Urine WBC (Auto) 1-5 /hpf Urine RBC (Auto) 0-4 /hpf Urine Hyaline Casts (Auto) 1-5 /lpf Urine Epithelial Cells (Auto) 10-20 /lpf Urine Bacteria (Auto) NEG [~ rep ct add3]] MRI OF THE LUMBAR SPINE WITHOUT CONTRAST CLINICAL HISTORY: Lumbar radiculopathy. Low back pain radiating into each lower extremity flow extremity numbness and tingling. Fall in October. COMPARISON STUDY: Lumbar spine radiograph March 31, 2018. TECHNIQUE: Utilizing a 1.5 Marilee magnet and dedicated coil, multiplanar, multiecho imaging of the lumbar spine was performed without IV contrast. FINDINGS: For purposes of numbering on this exam, the L5-S1 disc space is assigned to axial image 25 of 28. Note is made of 8 mm of anterolisthesis of L4 and L5 likely due to facet arthrosis. Note is made of a mild compression fracture of the L5 vertebral body with 20% loss of vertebral body height centrally. There is marrow edema. There is minimal prevertebral edema. Minimal retropulsion of 2 mm at the superior endplate is noted. There is also a mild fracture involving the inferior endplate of L4 with without significant vertebral body height loss. No additional compression fractures are present. Conus terminates at the L2 level. Redundancy of the lumbar nerve roots is noted due to severe central canal stenosis at L4-L5. A hemangioma is noted within the T12 vertebral body. L1-2: The central canal and neural foramen are patent. L2-3: The central canal and neural foramen are patent. L3-4: There is facet arthrosis with ligamentous hypertrophy. Central canal neural foramen are patent. L4-5: There is 8 mm of anterolisthesis of L4 and L5 due to facet arthrosis. There is slight retropulsion of the superior endplate of L5 due to a compression fracture which is superimposed upon facet arthrosis with ligamentous hypertrophy and uncovering of the disc. These findings result in severe central canal stenosis with compression of the cauda equina. There is mild bilateral neural foraminal stenosis. L5-S1: The central canal and neural foramen are patent. IMPRESSION: 1. Severe central canal stenosis with cauda equina compression at L4-L5. In large part, the findings are likely chronic, related to grade I anterolisthesis with uncovering of the disc, ligamentous hypertrophy and facet arthrosis. However, slight retropulsion of the superior endplate of L5 due to compression fracture increases severity of stenosis. If persistent symptoms, surgical consultation is recommended. Discussed with Wendie Vo at time of dictation. 2. Mild L5 compression fracture which is likely subacute to acute. Minimal inferior endplate compression fracture of L4 without significant vertebral body height loss. Electronically signed by: Brett Schulz M.D. 04/20/2018 8:[address] (CHEST) THORAX WITH CT DOSE: 332.07 mGy.cm HISTORY: Sarcoid D86.9 Sarcoidosis TECHNIQUE: Multiaxial CT images of the chest were performed following the intravenous administration of contrast. A dose lowering technique was utilized adhering to the principles of ALARA. COMPARISON: 05/05/2017 FINDINGS: Waxing and waning parenchymal nodularity the nodular density previously described superior segment right lower lobe has resolved. There is been interval development of a new 8 mm nodular density posterior aspect right lower lobe best seen transaxial image 166. Apical pleural thickening unchanged. No significant mediastinal or hilar adenopathy. IMPRESSION: 1. Waxing and waning right lower lobe parenchymal nodularity. 2. Six-month follow-up is suggested 3. Study is otherwise negative. BILATERAL LOWER EXTREMITY VENOUS DOPPLER CLINICAL HISTORY: Bilateral leg pain. COMPARISON STUDY: No previous studies for comparison. TECHNIQUE: Sonography of the deep venous system of the bilateral lower extremities was performed. Compression and augmentation were evaluated. FINDINGS: The bilateral common femoral, superficial femoral and popliteal veins were compressible. Augmentation was normal. Flow was shown within the deep calf vessels. IMPRESSION: No evidence of deep venous thrombus within the bilateral lower extremities. Electronically signed by: Brett Schulz M.D. 04/20/2018 11:09 AM Assessment & Plan 68yo female with history of Sarcoidosis, GERD presenting with progressive back pain with neurologic symptoms, concern for cauda equina compression most likely chronic in nature. Patient with sensory deficit noted, motor intact, denies involvement of bowels or bladder. 1. Cauda equina/L5 fracture - patient is admitted to surgical team, possible surgical intervention in AM. She is low risk for surgery, denies cardiac history. She is active and independent in her ADLs, easily performs 4 mets of activity with no exertional symptoms. -Pain, nausea and bowel management per primary team -Neurologic checks q 6 hours 2. Elevated Cr - patient with baseline Cr of 1, presently mildly elevated at 1.34. Possibly secondary to volume contraction. She received 1L NSS in ER -Maintenance fluids with NSS at 80mL/hr -Repeat chemistry panel in AM 3. Sarcoidosis - stable, chronic. Patient is not on treatment and has never been treated in the past. She follows with Pulmonary. CT performed today reveals stable chronic changes, recommended followup in 6 months -Continue to monitor 4. GERD - stable, chronic -Continue Protonix 40mg po daily -Continue Ranitidine 150mg po daily Thank you. We will continue to follow
[2018-04-20 15:23] VITALS: BP 152/79; PULSE 70; TEMP 37.1; O2SAT 95
[2018-04-20] MEDS: ONDANSETRON INJ 2 MG/ML 2 ML VIAL IV PRN (20:16)
[2018-04-20] MEDS ORDERED: SODIUM CHLORIDE 0.9% 1000ML 1,000 ML IV SCH (21:00)
[2018-04-20] MEDS: DOCUSATE SODIUM 100 MG CAP PO SCH (21:09)
[2018-04-20] MEDS: LORAZEPAM 1 MG TAB PO PRN (21:49)
[2018-04-20] MEDS: TRAMADOL HCL 50 MG TAB PO PRN (21:50)
[2018-04-20 23:25] VITALS: BP 136/90; PULSE 68; TEMP 36.7; O2SAT 94
[2018-04-21] VITALS (9 sets, daily range): BP systolic 110–141; BP diastolic 77–85; PULSE 60–78; TEMP 36.6–37; O2SAT 91–96
[2018-04-21] MEDS ORDERED: CEFAZOLIN IV 1,000 MG in DEXTROSE 5% 50ML 50 ML IV SCH (06:00)
[2018-04-21] MEDS ORDERED: CEFAZOLIN 2000MG IV PUSH 15 ML IV SCH (06:00)
[2018-04-21] MEDS: ONDANSETRON INJ 2 MG/ML 2 ML VIAL IV PRN ×2 (07:31→17:48)
[2018-04-21] MEDS: TRAMADOL HCL 50 MG TAB PO PRN ×3 (07:37→18:16)
[2018-04-21] MEDS: DOCUSATE SODIUM 100 MG CAP PO SCH ×2 (07:41→21:27)
[2018-04-21] MEDS: MULTIVITAMIN TAB PO SCH (07:41)
[2018-04-21] MEDS: LATANOPROST 0.005% OP SOLN 2.5 ML BTL OPB SCH (07:41)
[2018-04-21 08:24] LABS: CREATININE 0.98 mg/dl (0.60-1.20)
[2018-04-21 08:25] LABS: CALCIUM 8.7 mg/dl (8.5-10.1); POTASSIUM 3.8 mmol/L (3.5-5.1)
--- NOTE | 2018-04-21 10:50 | Orthopedic Consultation ---
Orthopedic Consultation Date of Consultation: Apr 21, 2018. Attending Physician: Ken Palencia D.O. Reason for Consultation: Back and leg pain History of Present Illness This is a very pleasant 68-year-old female that presents with marked decline in status. She came to emergency room yesterday with back and bilateral leg pain inability to ambulate. She does have a history of a fall in October of this year. She had significant back pain for several weeks after this fall. It did improve. However her new symptoms now involve numbness pain and tingling bilateral extremity with weakness and inability to ambulate. She been dealing with this for several weeks with a steady decline requiring admission. A course of oral steroids and medication is done nothing to improve her status. Once outside of the previously mentioned October fall. Family History FH: CAD (coronary artery disease) FH: dementia FH: diabetes mellitus FH: hypertension FH: thyroid cancer Social History Smoking Status: Former Smoker Smokeless Tobacco Use: No Alcohol Use: socially Drug Use: none Marital Status: Housing Status: lives alone Occupation Status: retired Allergies Coded Allergies: Adhesives (Unverified Allergy, Mild, RASH, 01/30/15) Acetaminophen (Verified Adverse Reaction, Intermediate, NAUSEA AND VOMITING, 04/20/18) Oxycodone (Verified Adverse Reaction, Intermediate, NAUSEA AND VOMITING, ) Home Medications Scheduled Baclofen (Lioresal), 10 MG PO TID Coenzyme Q10 (Ubidecarenone) (Coq10), 100 MG PEG DAILY Flaxseed (Linseed) (Flaxseed Oil 1000 mg), 1 CAP PO BID Lutein (Lutein), 20 MG PO DAILY Pantoprazole (Protonix), 40 MG PO DAILY Ranitidine (Zantac), 1 TAB PO BID [Juice Plus], 1 CAP PO DAILY Miscellaneous Medications Fluticasone Propionate (Nasal) (Flonase Allergy Relief), 50 MCG NA Ibuprofen (Advil), 200 MG PO Current Inpatient Medications Current Inpatient Medications Medications (Trade) Dose Ordered Sig/Bharati Route Start Time Stop Time Status Last Admin Dose Admin Docusate Sodium (coLACE CAP) 100 mg BID PO 04/20/18 21:00 05/20/18 20:59 04/21/18 07:41 100 MG Ondansetron HCl (Zofran Inj) 4 mg Q6H PRN IV 04/20/18 09:45 05/20/18 09:44 04/21/18 07:31 4 MG Lorazepam (Ativan Tab) 1 mg Q6H PRN PO 04/20/18 09:45 05/20/18 09:44 04/20/18 21:49 1 MG Lorazepam 1 mg/ Syringe 0.5 ml @ 1 mls/min Q6H PRN IV 04/20/18 09:45 05/20/18 09:44 Tramadol HCl (Ultram Tab) 50 mg Q8H PRN PO 04/20/18 09:45 05/20/18 09:44 04/21/18 07:37 50 MG Latanoprost (Xalatan Oph Soln) 1 drops DAILY OPB 04/21/18 09:00 05/21/18 08:59 Multivitamins (Multivitamin Tab) 1 tab DAILY PO 04/21/18 09:00 05/21/18 08:59 Cefazolin Sodium 15 ml @ 3.75 mls/ min PREOP IV 04/21/18 06:00 04/21/18 18:00 Physical Exam Date Time Temp Pulse Resp B/P (MAP) Pulse Ox O2 Delivery O2 Flow Rate FiO2 04/21/18 08:10 94 Room Air 04/21/18 07:25 Room Air 04/21/18 07:20 36.8 78 20 134/82 (99) 95 Room Air 04/20/18 23:30 Room Air 04/20/18 23:25 36.7 68 18 136/90 (105) 94 Room Air 04/20/18 15:40 Room Air 04/20/18 15:23 37.1 70 17 152/79 (103) 95 Room Air 04/20/18 11:12 37.0 60 18 128/79 95 Room Air 04/20/18 11:02 61 20 139/78 96 On physical exam patient is alert and oriented. She is comfortable and sitting in bed. She does demonstrate decreased sensation to the bilateral thighs and anterior tibias bilaterally. She is reasonable strength plantar flexion dorsiflexion and extensor hallucis longus bilaterally. Quadriceps intact. Negative logroll. No abnormal skin markings lumbar spine. Laboratory Results Last 24 Hours Test 04/21/18 07:18 Sodium Level 138 mmol/L Potassium Level 3.8 mmol/L Chloride Level 107 mmol/L Carbon Dioxide Level 23 mmol/L Anion Gap 8.0 mmol/L Blood Urea Nitrogen 14 mg/dl Creatinine 0.98 mg/dl Est Creatinine Clear Calc Drug Dose 62.5 ml/min Estimated GFR () 69.2 Estimated GFR (Non- 59.7 BUN/Creatinine Ratio 14.4 Random Glucose 125 mg/dl Calcium Level 8.7 mg/dl Assessment & Plan Assessment severe lumbar spinal stenosis with spondylolisthesis and neurogenic claudication. Plan at this time her MRI demonstrates severe spinal stenosis with lateral recess disease and an instability level 4 5. Is a candidate for surgical intervention. Would require a lumbar decompression and fusion L4-5 L5- S1. I have some concerns regarding the subacute fracture of L5. We may consider kyphoplasty time of surgery. She understands and agrees and would like to pursue with surgery as soon as possible secondary to pain and inability to ambulate. Risks benefits pros cons and alternatives were outlined in detail. Risks include but not limited to from anesthesia blindness stroke paralysis nerve damage blood loss current transfusion infection requiring reoperation. Benefits of the marked improvement of her neurogenic claudication.
[2018-04-21] MEDS ORDERED: ONDANSETRON INJ 2 MG/ML 2 ML VIAL IV PRN (11:45)
[2018-04-21] MEDS ORDERED: ATROPINE SULFATE 0.1 MG/ML 5ML SYR IV PRN (11:45)
[2018-04-21] MEDS ORDERED: MoRPHine SULFATE 10 MG/ML CARP/VIAL IV PRN (11:45)
[2018-04-21] MEDS ORDERED: EpHEDrine SULFATE INJ 50 MG/ML AMP IV PRN (11:45)
[2018-04-21] MEDS ORDERED: MIDAZOLAM HCL 1 MG/ML 2ML VIAL ONE (12:07)
[2018-04-21] MEDS ORDERED: FENTANYL CITRATE INJ 50 MCG/1 ML 2 ML VIAL ONE ×3 (12:07→13:16)
[2018-04-21] MEDS ORDERED: BUPIVACAINE/EPINEPHRINE 0.5% MPF 1:200,000 30 ML VIAL ONE (12:29)
[2018-04-21] MEDS ORDERED: BACITRACIN 50000 UNIT VIAL ONE (12:29)
[2018-04-21] MEDS ORDERED: HYDROmorphone INJ 2 MG/ML SYR/VIAL ONE (12:32)
[2018-04-21] MEDS ORDERED: BUPIVACAINE 0.5 % 5 MG/1 ML PF 10ML VIAL ONE (13:18)
[2018-04-21] MEDS ORDERED: SODIUM CHLORIDE 0.9% PF 50 ML VIAL ONE (13:19)
[2018-04-21] MEDS ORDERED: BUPIVACAINE LIPOSOME 1/3% 266 MG/20 ML VIAL ONE (13:19)
[2018-04-21] MEDS ORDERED: NEOSTIGMINE METHYLSULFATE 1 MG/ML 10ML VIAL ONE (13:45)
[2018-04-21] MEDS ORDERED: PHENYLEPHRINE 100MCG/ML 5ML SYR ONE (13:45)
[2018-04-21] MEDS ORDERED: PROPOFOL IV EMULSION 10 MG/ML 20 ML VIAL ONE (13:45)
[2018-04-21] MEDS ORDERED: RANITIDINE HCL 25 MG/ML INJ ONE (13:45)
[2018-04-21] MEDS ORDERED: LIDOCAINE HCL 2% 2 ML VIAL (20MG/ML) ONE (13:45)
[2018-04-21] MEDS ORDERED: GLYCOPYRROLATE INJ 0.2 MG/ML VIAL ONE (13:45)
[2018-04-21] MEDS ORDERED: DEXAMETHASONE SOD INJ 4 MG/ML VIAL ONE (13:45)
[2018-04-21] MEDS ORDERED: ONDANSETRON INJ 2 MG/ML 2 ML VIAL ONE (13:45)
[2018-04-21] MEDS ORDERED: PROMETHAZINE HCL INJ 12.5 MG in SODIUM CHLORIDE 0.9% 50ML 50 ML IV PRN (15:00)
[2018-04-21] MEDS ORDERED: NALOXONE HCL 0.4 MG/1 ML VIAL/CARP IV PRN (15:00)
[2018-04-21] MEDS ORDERED: ALUMINUM/MAGNESIUM SUSP 30 ML UDC PO PRN (15:00)
[2018-04-21] MEDS ORDERED: DO NOT ADMINISTER PNEUMOCOCCAL VACCINE PRN (15:00)
[2018-04-21] MEDS ORDERED: LORAZEPAM INJ 0.5 MG in SYRINGE 0 ML IV PRN (15:00)
[2018-04-21] MEDS ORDERED: SOD PHOSPHATE/SOD BIPHOSPHATE ENEMA 132 ML BTL PR PRN (15:00)
[2018-04-21] MEDS ORDERED: FAMOTIDINE 20 MG TAB PO PRN (15:00)
[2018-04-21] MEDS ORDERED: DO NOT ADMINISTER FLU VACCINE PRN (15:00)
[2018-04-21] MEDS ORDERED: MAGNESIUM HYDROXIDE SUSP 30 ML UDC PO PRN (15:00)
[2018-04-21] MEDS ORDERED: BISACODYL 10 MG SUPP PR PRN (15:00)
[2018-04-21] MEDS ORDERED: hydrOXYzine HCL 25 MG TAB PO PRN (15:00)
[2018-04-21] MEDS ORDERED: LORAZEPAM 0.5 MG TAB PO PRN (15:00)
--- NOTE | 2018-04-21 15:00 | [facility] Operative Report ---
Operative Report Operative Date Apr 21, 2018. Pre-Operative Diagnosis severe lumbar spinal stenosis with spondylolisthesis and neurogenic claudication Post-Operative Diagnosis severe lumbar spinal stenosis with spondylolisthesis and neurogenic claudication Procedure(s) Performed 1. Lumbar decompression medial facetectomies foraminotomies L3-4 L4-5 L5-S1. #2 posterior spinal fusion L4-5 L5-S1. #3 placement posterior segmental instrumentation L4-5 L5-S1. #4 placement of local autograft in the posterior gutters. #5 placement of infuse: Sponge combined with master graft in the posterior lateral gutters. Surgeon Dr. Palencia Finance Effectiveness Manager Surgeon(s) Vera Nguyen PA-C Estimated Blood Loss 150 ML Findings Her spinal stenosis with spondylolisthesis L4-5 Specimens none per surgeon Anesthesia Type General Description of Procedure Patient was met with preoperatively case discussed all questions addressed. After informed consent obtained patient was taken to the operative suite underwent intubation placed in a prone position injection table on top of the Isiah frame. All bony prominences were well-padded eyes inspected to ensure no external pressure placed upon the. This point lumbar spine was prepped and draped in normal sterile fashion. Sharp dissection with the assistance of Bovie cautery was performed down to and exposing the lamina and transverse process of L4-L5 and sacral ala bilaterally. From a caudal to cephalad fashion complete laminectomy of L5 L4 and partial laminectomy of L3 is performed addressing severe lateral recess and foraminal disease. If this complete pedicle screws was placed in L4-L5 and S1 levels bilaterally with the assistance of fluoroscopy and the purposes lucas locked in position. Transverse processes of L4-L5 and sacral ala were then burred to subcortical bleeding bone. Infuse collagen sponge master graft local autograft placed in the posterior gutters. Cross-link locked in position. Approximately 80 cc of Exparel injected into the musculature. 15 round PRANAV drain inserted. Incision then closed with 1 Vicryl fascia 2-0 Vicryl subcutaneously a 4 Monocryl for fashion closure Steri-Strips sterile dressing was placed. Patient will continue to PACU stable condition. Please note Vera Feldman was present throughout the entire procedure involved in patient positioning complex portions of the surgery and final skin closure. I attest to the content of the Intraoperative Record and any orders documented therein. Any exceptions are noted below.
--- NOTE | 2018-04-21 15:07 | DIAGNOSTIC IMAGING REPORT ---
INTRAOPERATIVE RADIOGRAPHS CLINICAL HISTORY: L4-S1 spinal fusion. Fluoroscopy time: 33 seconds. FINDINGS:2 spot fluoroscopic views of the lower lumbar spine are presented. There has been laminectomy and posterior fusion from L4 -S1. Interpedicular screws are present at all levels. The orthopedic hardware appears intact. IMPRESSION: Intraoperative images from L4 -S1 spinal fusion as above. Electronically signed by: Dmitriy Murray M.D. 04/21/2018 3:05 PM Dictated Date/Time: 04/21/2018 3:04 PM
[2018-04-21] MEDS: FENTANYL CITRATE INJ 50 MCG/1 ML 2 ML VIAL IV PRN ×4 (15:28→15:48)
--- NOTE | 2018-04-21 16:06 | Anesthesiology Progress Note ---
Anesthesia Post Op Note Date & Time Apr 21, 2018 at 16:06 Vital Signs Pain Intensity: 5 Vital Signs Past 12 Hours Date Time Temp Pulse Resp B/P (MAP) Pulse Ox O2 Delivery O2 Flow Rate FiO2 04/21/18 15:41 54 18 120/73 96 04/21/18 15:41 55 18 04/21/18 15:36 60 18 04/21/18 15:36 55 18 126/75 97 04/21/18 15:31 58 18 04/21/18 15:31 63 18 131/76 99 04/21/18 15:26 63 12 04/21/18 15:26 62 12 154/83 97 04/21/18 15:21 69 13 04/21/18 15:21 69 13 142/82 98 04/21/18 15:17 144/85 04/21/18 15:16 71 18 04/21/18 15:16 36.5 66 18 144/85 (100) 99 Oxymask 10 04/21/18 15:16 73 18 100 04/21/18 08:10 94 Room Air 04/21/18 07:25 Room Air 04/21/18 07:20 36.8 78 20 134/82 (99) 95 Room Air Notes Mental Status: alert / awake / arousable, participated in evaluation Pt Amnestic to Procedure: Yes Nausea / Vomiting: adequately controlled Pain: adequately controlled Airway Patency, RR, SpO2: stable & adequate BP & HR: stable & adequate Hydration State: stable & adequate Anesthetic Complications: no major complications apparent
[2018-04-21] MEDS: SODIUM CHLORIDE 0.9% 1000ML 1,000 ML IV SCH ×2 (17:10→23:25)
--- NOTE | 2018-04-21 21:10 | Progress Note ---
Subjective Date of Service: Apr 21, 2018. Subjective Pt evaluation today including: conversation w/ patient, physical exam, chart review, lab review, review of studies (operative note ), review of inpatient medication list Pain: back pain PO Intake: had emesis after getting back from the OR Voiding: baker catheter in place No chest pain No dyspnea No abdominal pain or bloating although had emesis upon return from OR Review of Systems Respiratory: No shortness of breath Objective Vital Signs Date Time Temp Pulse Resp B/P (MAP) Pulse Ox O2 Delivery O2 Flow Rate FiO2 04/21/18 18:42 37.0 75 16 123/85 (98) 95 Nasal Cannula 2.0 04/21/18 17:30 36.6 60 18 141/84 (103) 96 Nasal Cannula 2.0 04/21/18 17:05 94 Nasal Cannula 2.0 04/21/18 17:01 61 16 110/77 (88) 95 Nasal Cannula 2.0 04/21/18 16:30 36.7 64 16 138/81 (100) 94 Nasal Cannula 2.0 04/21/18 16:21 133/72 04/21/18 16:19 60 25 04/21/18 16:19 60 25 96 04/21/18 16:16 125/72 04/21/18 16:14 62 22 96 04/21/18 16:14 64 22 04/21/18 16:11 112/80 04/21/18 16:09 61 6 04/21/18 16:09 62 6 96 04/21/18 16:08 61 16 04/21/18 16:08 62 16 96 04/21/18 16:08 36.4 61 16 118/84 (103) 96 Nasal Cannula 4 04/21/18 16:06 118/84 04/21/18 16:03 63 12 96 04/21/18 16:03 64 12 04/21/18 16:02 66 16 04/21/18 16:02 68 16 94 04/21/18 16:00 135/78 04/21/18 15:57 69 14 95 04/21/18 15:57 68 14 04/21/18 15:56 106/96 04/21/18 15:52 68 10 94 04/21/18 15:52 74 10 04/21/18 15:51 121/80 04/21/18 15:47 59 12 04/21/18 15:47 62 12 128/70 96 04/21/18 15:42 56 9 04/21/18 15:42 54 9 94 04/21/18 15:41 54 18 120/73 96 04/21/18 15:41 55 18 04/21/18 15:36 60 18 04/21/18 15:36 55 18 126/75 97 04/21/18 15:31 58 18 04/21/18 15:31 63 18 131/76 99 04/21/18 15:26 63 12 04/21/18 15:26 62 12 154/83 97 04/21/18 15:21 69 13 04/21/18 15:21 69 13 142/82 98 04/21/18 15:17 144/85 04/21/18 15:16 71 18 04/21/18 15:16 36.5 66 18 144/85 (100) 99 Oxymask 10 04/21/18 15:16 73 18 100 04/21/18 08:10 94 Room Air 04/21/18 07:25 Room Air 04/21/18 07:20 36.8 78 20 134/82 (99) 95 Room Air 04/20/18 23:30 Room Air 04/20/18 23:25 36.7 68 18 136/90 (105) 94 Room Air Physical Exam General Appearance: no apparent distress ENT: pharynx normal Neck: no JVD Respiratory/Chest: lungs clear, no respiratory distress, no accessory muscle use Cardiovascular: regular rate, rhythm, no gallop, + systolic murmur (1/6 JAYA LSB ) Abdomen: normal bowel sounds, non tender, soft, no organomegaly Extremities: no pedal edema Neurologic/Psychiatric: alert, oriented x 3 Laboratory Results Last 24 Hours Test 04/21/18 07:18 Sodium Level 138 mmol/L Potassium Level 3.8 mmol/L Chloride Level 107 mmol/L Carbon Dioxide Level 23 mmol/L Anion Gap 8.0 mmol/L Blood Urea Nitrogen 14 mg/dl Creatinine 0.98 mg/dl Est Creatinine Clear Calc Drug Dose 62.5 ml/min Estimated GFR () 69.2 Estimated GFR (Non- 59.7 BUN/Creatinine Ratio 14.4 Random Glucose 125 mg/dl Calcium Level 8.7 mg/dl Assessment and Plan 68yo female - 1. L4-L5 severe lumbar spinal stenosis with spondylolisthesis and neurogenic claudication - s/p lumbar decompression/fusion procedure today by Dr. Palencia. 2. post-op emesis - likely due to anesthesia, narcotics, etc. Abdominal exam wnl tonight. Follow, treat with anti-emetics. 3. h/o sarcoid - in remission. 4. DVT proph - defer to orthopedics, but likely SCDs. 5. minimal acute kidney injury - resolved. BMP in am for stability. 6. GERD - PPI. 7. hyponatremia - resolved. Will continue to follow. Continued [facility] stay due to: inadequate oral pain control, multiple IV medications needed
[2018-04-21] MEDS: LORAZEPAM 1 MG TAB PO PRN (21:26)
[2018-04-21] MEDS: DOCUSATE SODIUM/SENNA 50/8.6MG TAB PO SCH (21:27)
[2018-04-21] MEDS: CEFAZOLIN IV 2,000 MG in SYRINGE 0 ML IV SCH (21:27)
[2018-04-21] MEDS: METOCLOPRAMIDE HCL INJ 5 MG/ML 2 ML VIAL IV PRN (21:27)
[2018-04-21] MEDS: HYDROmorphone INJ 0.5 MG/0.5 ML SYR IV PRN (23:26)
[2018-04-22 03:30] VITALS: BP 127/72; PULSE 80; TEMP 36.8; O2SAT 94
[2018-04-22] MEDS: CEFAZOLIN IV 2,000 MG in SYRINGE 0 ML IV SCH (03:36)
[2018-04-22] MEDS: SODIUM CHLORIDE 0.9% 1000ML 1,000 ML IV SCH (04:35)
[2018-04-22] MEDS ORDERED: NURSING VERBAL MED ORDER ONE (05:45)
[2018-04-22 07:15] VITALS: BP 130/82; PULSE 80; TEMP 37.3; O2SAT 95
[2018-04-22 08:11] LABS: BASO % 0.1 %; BASO ABS # 0.01 K/uL (0-0.2); HEMATOCRIT 32.5 % (37-47); HEMOGLOBIN 10.9 g/dL (12.0-16.0); IG# 0.04 K/uL (0.00-0.02); LYMPH % 17.3 %; MEAN CELL VOLUME 98.5 fL (80-100); MEAN CORPUSCULAR HGB CONC 33.5 g/dl (32-36); MEAN PLATELET VOLUME 9.9 fL (7.4-10.4); MONO % 6.9 %; MONO ABS # 0.84 K/uL (0.11-0.59); NEUT % 75.4 %; NEUT ABS # 9.12 K/uL (1.4-6.5); PLATELET COUNT 218 K/uL (130-400); WHITE BLOOD COUNT 12.11 K/uL (4.8-10.8)
[2018-04-22] MEDS: LATANOPROST 0.005% OP SOLN 2.5 ML BTL OPB SCH (08:30)
[2018-04-22] MEDS: TRAMADOL HCL 50 MG TAB PO PRN (08:31)
[2018-04-22] MEDS: ONDANSETRON INJ 2 MG/ML 2 ML VIAL IV PRN (08:31)
[2018-04-22] MEDS: DOCUSATE SODIUM 100 MG CAP PO SCH ×2 (08:31→21:27)
[2018-04-22] MEDS: MULTIVITAMIN TAB PO SCH (08:31)
[2018-04-22 08:48] LABS: CALCIUM 8.6 mg/dl (8.5-10.1); CREATININE 0.93 mg/dl (0.60-1.20); POTASSIUM 3.7 mmol/L (3.5-5.1)
[2018-04-22 09:00] VITALS: O2SAT 95
--- NOTE | 2018-04-22 09:38 | Progress Note ---
Progress Note Date of Service Apr 22, 2018. Progress Note Patient complaining of back pain. She feels her leg symptoms are markedly improved. Vital signs are stable. PRANAV drain decreasing. On exam she is good strength testing appears comfortable. Assessment status post lumbar decompression fusion per plan at this time we will continue physical therapy. I will provide her with a brace in the next day or so. She will be wearing this as she becomes more ambulatory. Also considering rehab upon discharge.
[2018-04-22] MEDS ORDERED: ULT50X PO ×2 (09:39)
--- NOTE | 2018-04-22 09:40 | Discharge Instructions ---
Discharge Instructions Date of Service Apr 22, 2018. Admission Reason for Admission: Lumbar Stenosis W/Neurogenic Claudication Discharge Discharge Diagnosis / Problem: lumbar stenosis Discharge Goals Goal(s): Improve function Activity Recommendations Activity Limitations: per Instructions/Follow-up section . Instructions / Follow-Up Instructions / Follow-Up ACTIVITY RECOMMENDATIONS: SELF CARE INSTRUCTIONS AFTER THORACIC/LUMBAR FUSIONS 1. You may walk to your tolerance. It is good exercise for your legs and back. Expect some back and intermittent leg aches and pains. 2. You may perform "counter-top" level activities (make a sandwich, yan with a project, etc.). 3. No bending or lifting of more than 10 pounds or back twisting of any nature (roll like a log when turning in bed). 4. You may ride in a car for 20-30 minutes at a time. No driving until after your first visit with your doctor. 5. Frequent changes of position and restricting sitting to 30 minutes at a time will help limit the amount of back spasms and stiffness you may experience. 6. You may discontinue the use of ambulatory aids (cane, crutches, etc.) once your strength and confidence allow. 7. You may knitting machine fixer head the shower and let water strike your incision when you arrive home at least once daily. Do not take a tub bath, sit in a hot tub or go into a swimming pool until after your first recheck in the office. SPECIAL CARE INSTRUCTIONS: VERY IMPORTANT TO READ AND REVIEW A. Your surgical incision has been closed with a cosmetic suture under the skin that will dissolve in about 6 weeks. In 14 days, you can use a pair of clean scissors and cut the suture that is left outside of the skin at the ends of your incision. 1. The small skin tapes can be removed 7 days after surgery if they have not fallen off by that point. 2. You may keep the wound open to air as much as possible to promote healing after post-op day number 5 unless told otherwise by your doctor. 3. If you think the wound looks like it is becoming infected (redness or worsening drainage) and/or you are experiencing fever, chill or worsening back pain and muscle spasms, contact the office so that we may evaluate you as soon as possible. B. Complications are uncommon, but please contact us if you have any signs or symptoms of: 1. wound infection (fever higher than 102.5 degrees F, redness, separation of wound, drainage, or increasing pain from the incision) 2. blood clots in legs (pain, swelling, redness and warmth in legs) 3. urinary tract infection (fever higher than 102.5 degrees F, burning upon urination or increased frequency of urination) 4. nerve problems (inability to walk on your toes or heels, numbness, loss of bowel or bladder control) 5. any other symptoms that concern you C. Please call the office at if you have any concerns or questions about your operation or recovery. D. No smoking! Smoking drastically decreases the chance of a solid fusion. E. Do not take any anti-inflammatory medications (Indocin, Advil, Motrin, Aspirin, Naprosyn, etc.) as these may inhibit the chance of a solid fusion. Tylenol is okay to take for pain. MANAGING PAIN AFTER SPINAL SURGERY 1. Narcotic medication is intended for short-term use and will be provided for surgical pain. Surgical pain usually lasts for a period of 4-6 weeks. Narcotic medication includes Percocet, Vicodin, Darvocet, Tylenol #3 or Lortab. 2. Longer-term pain is more appropriately treated with non-narcotic medication such as Tylenol ES. 3. Muscle spasm is not appropriately treated with narcotics. Muscle relaxers such as Soma, Flexeril or Skelaxin can be used along with Tylenol ES. 4. Remember that we all live with some "aches and pains". This is not unusual or uncommon after an injury or as we get older. a. Back pain is expected and may include muscle spasms for 4 to 6 weeks after surgery. The pain should gradually improve. If the pain worsens for no apparent reason, please contact the office. b. Intermittent leg pain may also be experienced and should not be concerned about unless it worsens for no apparent reason. If so, please contact the office. 5. We will provide appropriate medication within the normal guidelines of their prescribed use. We will also be very cautious and aware of potential abuse and extended duration of patients' medication needs. a. Pain medications are for your comfort and to assist with sleep and rest so that the tissue can heal. They are not provided in order to return to normal activity and should not be used through the day. To do so or worsening pain at night can result from ongoing tissue damage and development of tolerance to the prescribed medicine. 6. Please allow 2-3 days to process refills. Prescriptions will not be mailed but must be picked up at the office. FOLLOW UP VISIT: Keep your scheduled follow-up appointment. Any questions, please call the office at . Current Hospital Diet Patient's current hospital diet: Regular Diet Discharge Diet Recommended Diet: Regular Diet Procedures Procedures Performed: 1. Lumbar decompression medial facetectomies foraminotomies L3-4 L4-5 L5-S1. #2 posterior spinal fusion L4-5 L5-S1. #3 placement posterior segmental instrumentation L4-5 L5-S1. #4 placement of local autograft in the posterior gutters. #5 placement of infuse: Sponge combined with master graft in the posterior lateral gutters. Pending Studies Studies pending at discharge: no Medical Emergencies . Who to Call and When: Medical Emergencies: If at any time you feel your situation is an emergency, please call 911 immediately. . Non-Emergent Contact Non-Emergency issues call your: Primary Care Provider . "Provider Documentation" section prepared by Ken Palencia. .
[2018-04-22] MEDS ORDERED: KETOROLAC TROMETHAMINE 30 MG/ML VIAL IV PRN (09:45)
[2018-04-22 11:30] VITALS: BP 138/88; PULSE 75; TEMP 37.1; O2SAT 95
[2018-04-22] MEDS: KETOROLAC TROMETHAMINE 15 MG/ML VIAL IV. PRN ×2 (11:39→18:11)
[2018-04-22 15:05] VITALS: BP 134/77; PULSE 75; TEMP 37.1; O2SAT 93
[2018-04-22] MEDS: DOCUSATE SODIUM/SENNA 50/8.6MG TAB PO SCH (21:27)
[2018-04-22 23:00] VITALS: BP 143/84; PULSE 77; TEMP 37.1; O2SAT 95
[2018-04-22] MEDS: LORAZEPAM 1 MG TAB PO PRN (23:37)
--- NOTE | 2018-04-22 23:59 | Progress Note ---
Subjective Date of Service: Apr 22, 2018. Subjective Pt evaluation today including: conversation w/ patient, physical exam, chart review, lab review Pain: back; but leg pain improved PO Intake: tolerating meals Voiding: no voiding problems feels good ambulating nausea largely improved passing flatus but only small amounts eating well Review of Systems Respiratory: No cough, No shortness of breath, No dyspnea on exertion Cardiac: No chest pain Abdomen: No pain Objective Vital Signs Date Time Temp Pulse Resp B/P (MAP) Pulse Ox O2 Delivery O2 Flow Rate FiO2 04/22/18 23:00 37.1 77 20 143/84 (103) 95 Room Air 04/22/18 17:00 Room Air 04/22/18 15:05 37.1 75 16 134/77 (96) 93 Room Air 04/22/18 11:30 37.1 75 19 138/88 (105) 95 Room Air 04/22/18 09:00 95 Room Air 04/22/18 08:30 Room Air 04/22/18 07:15 37.3 80 15 130/82 (98) 95 Room Air 04/22/18 03:30 36.8 80 14 127/72 (90) 94 Room Air Physical Exam General Appearance: no apparent distress ENT: pharynx normal Neck: no JVD Respiratory/Chest: lungs clear, no respiratory distress, no accessory muscle use Cardiovascular: regular rate, rhythm, no gallop, no murmur Abdomen: normal bowel sounds, non tender, no organomegaly, + distended (minimal ) Extremities: no pedal edema Neurologic/Psychiatric: no motor/sensory deficits (strength 5/5 x both legs), alert, oriented x 3 Laboratory Results Last 24 Hours Test 04/22/18 07:59 White Blood Count 12.11 K/uL Red Blood Count 3.30 M/uL Hemoglobin 10.9 g/dL Hematocrit 32.5 % Mean Corpuscular Volume 98.5 fL Mean Corpuscular Hemoglobin 33.0 pg Mean Corpuscular Hemoglobin Concent 33.5 g/dl Platelet Count 218 K/uL Mean Platelet Volume 9.9 fL Neutrophils (%) (Auto) 75.4 % Lymphocytes (%) (Auto) 17.3 % Monocytes (%) (Auto) 6.9 % Eosinophils (%) (Auto) 0.0 % Basophils (%) (Auto) 0.1 % Neutrophils # (Auto) 9.12 K/uL Lymphocytes # (Auto) 2.10 K/uL Monocytes # (Auto) 0.84 K/uL Eosinophils # (Auto) 0.00 K/uL Basophils # (Auto) 0.01 K/uL RDW Standard Deviation 47.0 fL RDW Coefficient of Variation 13.0 % Immature Granulocyte % (Auto) 0.3 % Immature Granulocyte # (Auto) 0.04 K/uL Sodium Level 140 mmol/L Potassium Level 3.7 mmol/L Chloride Level 109 mmol/L Carbon Dioxide Level 22 mmol/L Anion Gap 9.0 mmol/L Blood Urea Nitrogen 13 mg/dl Creatinine 0.93 mg/dl Est Creatinine Clear Calc Drug Dose 65.9 ml/min Estimated GFR () 73.7 Estimated GFR (Non- 63.6 BUN/Creatinine Ratio 13.6 Random Glucose 111 mg/dl Calcium Level 8.6 mg/dl Assessment and Plan 68yo female - 1. L4-L5 severe lumbar spinal stenosis with spondylolisthesis and neurogenic claudication - s/p lumbar decompression/fusion procedure, POD#1. Doing well from surgical standpoint. 2. post-op emesis - likely due to anesthesia, narcotics - resolved. Tolerating diet. Cont aggressive bowel regimen. 3. h/o sarcoid - in remission. 4. DVT proph - defer to orthopedics (SCDs). 5. minimal acute kidney injury - resolved. BMP continues to remain normal. 6. GERD - PPI. 7. hyponatremia - resolved. Patient doing well from medical standpoint. Will plan to sign off at this time. Thank you for the consult; please do not hesitate to call us with any questions or concerns. Continued [facility] stay due to: multiple IV medications needed Discharge planning: other (rehab)
[2018-04-23] MEDS: POLYETHYLENE (MIRALAX) 17 GM PACK PO SCH ×4 (05:30→17:44)
[2018-04-23 07:15] VITALS: BP 124/78; PULSE 78; TEMP 37.3; O2SAT 96
[2018-04-23] MEDS: KETOROLAC TROMETHAMINE 15 MG/ML VIAL IV. PRN ×2 (07:41)
[2018-04-23 08:15] VITALS: O2SAT 96
[2018-04-23] MEDS: DOCUSATE SODIUM 100 MG CAP PO SCH ×2 (09:39→20:16)
[2018-04-23] MEDS: MULTIVITAMIN TAB PO SCH (09:39)
[2018-04-23] MEDS: LATANOPROST 0.005% OP SOLN 2.5 ML BTL OPB SCH (09:39)
[2018-04-23 09:45] VITALS: BP 143/102; PULSE 81; O2SAT 98
[2018-04-23] MEDS: TRAMADOL HCL 50 MG TAB PO PRN (13:24)
[2018-04-23] MEDS: ONDANSETRON INJ 2 MG/ML 2 ML VIAL IV PRN (13:25)
--- NOTE | 2018-04-23 13:30 | Progress Note ---
Progress Note Date of Service Apr 23, 2018. Progress Note Patient's back pain is controlled. Leg pain improved. Vital signs are stable. On exam she is ambulate in the halls with a walker. She is reasonable strength testing. Assessment status post lumbar decompression fusion per plan at this time we are planning for discharge to [facility] Thursday.
[2018-04-23 15:10] VITALS: O2SAT 97
[2018-04-23 16:03] VITALS: BP 115/71; PULSE 85; TEMP 37.4; O2SAT 95
[2018-04-23] MEDS: HYDROmorphone INJ 0.5 MG/0.5 ML SYR IV PRN (17:40)
[2018-04-23] MEDS: METOCLOPRAMIDE HCL INJ 5 MG/ML 2 ML VIAL IV PRN (17:46)
[2018-04-23] MEDS: DOCUSATE SODIUM/SENNA 50/8.6MG TAB PO SCH (20:16)
[2018-04-23 23:07] VITALS: BP 121/75; PULSE 77; TEMP 37.4; O2SAT 96
[2018-04-24] MEDS: POLYETHYLENE (MIRALAX) 17 GM PACK PO SCH ×3 (00:10→11:19)
[2018-04-24] MEDS: TRAMADOL HCL 50 MG TAB PO PRN (00:24)
[2018-04-24] MEDS: KETOROLAC TROMETHAMINE 15 MG/ML VIAL IV. PRN (06:26)
--- NOTE | 2018-04-24 07:34 | Discharge Summary ---
Orthopedic Discharge Summary Admission Date/Reason Apr 20, 2018 at 09:46 Lumbar Stenosis W/Neurogenic Claudication. Discharge Date/Disposition Apr 24, 2018 Rehab Diagnosis Principal Diagnosis: Lumbar spinal stenosis Admission Physical Exam As per Admitting History & Physical. Hospital Course Patient was admitted with inability ambulate and significant back and leg pain. She underwent lumbar decompression fusion tolerated this well was taken to the orthopedic floor postoperatively. She progressed appropriately throughout her hospital stay with marked improvement of back and leg pain. She was sexually discharged to rehab. Discharge orders and instructions can be found in the chart for further review. Discharge Instructions Please refer to the electronic Patient Visit Report (Discharge Instructions) for additional information.
[2018-04-24 07:51] VITALS: BP 110/80; PULSE 84; PULSE 86; TEMP 37.4; O2SAT 94
[2018-04-24] MEDS: DOCUSATE SODIUM 100 MG CAP PO SCH (08:27)
[2018-04-24] MEDS: MULTIVITAMIN TAB PO SCH (08:27)
[2018-04-24] MEDS: LATANOPROST 0.005% OP SOLN 2.5 ML BTL OPB SCH (08:27)
[2018-04-24 09:17] VITALS: BP 110/80; PULSE 77; TEMP 37.4; O2SAT 94
== END 2018-04-24 13:46 | DRG 460 ==
LOC: C.EDB 09:02 → C.MSN 09:46 → ENRESERV 09:59
PROVIDERS: ADMIT Orthopaedic Surgery Orthopaedic Surgery of the Spine; ATTEND Orthopaedic Surgery Orthopaedic Surgery of the Spine
PROC: 01NB0ZZ Release Lumbar Nerve, Open Approach (ICD-10-PCS; principal; 2018-04-21 12:15)
PROC: 0SG0071 Fusion of Lumbar Vertebral Joint with Autologous Tissue Substitute, Posterior Approach, Posterior Column, Open Approach (ICD-10-PCS; principal; 2018-04-21 12:15)
PROC: 0SG3071 Fusion of Lumbosacral Joint with Autologous Tissue Substitute, Posterior Approach, Posterior Column, Open Approach (ICD-10-PCS; principal; 2018-04-21 12:15)
DX: M48.062 Spinal stenosis, lumbar region with neurogenic claudication (principal); M48.56XA Collapsed vertebra, not elsewhere classified, lumbar region, initial encounter for fracture; N17.9 Acute kidney failure, unspecified; E87.1 Hypo-osmolality and hyponatremia; M53.2X6 Spinal instabilities, lumbar region; M43.16 Spondylolisthesis, lumbar region; M51.26 Other intervertebral disc displacement, lumbar region; K21.9 Gastro-esophageal reflux disease without esophagitis; Z79.899 Other long term (current) drug therapy; Z91.81 History of falling; Z87.891 Personal history of nicotine dependence; Z88.5 Allergy status to narcotic agent; Z88.6 Allergy status to analgesic agent; Z91.048 Other nonmedicinal substance allergy status; Z82.49 Family history of ischemic heart disease and other diseases of the circulatory system; Z83.3 Family history of diabetes mellitus; Z81.8 Family history of other mental and behavioral disorders; Z80.8 Family history of malignant neoplasm of other organs or systems

== ENCOUNTER → 2018-04-20 | Outpatient (CLI) | payer OTHER ==
[~2018-04-20] MED LIST changes: +BACL10TA PO; +FLUT0.15; +IBUP-1050 PO; +PANT40TA PO; +RANI150T85 PO; +ULT50X PO
--- NOTE | 2018-04-20 08:34 | DIAGNOSTIC IMAGING REPORT ---
MRI OF THE LUMBAR SPINE WITHOUT CONTRAST CLINICAL HISTORY: Lumbar radiculopathy. Low back pain radiating into each lower extremity flow extremity numbness and tingling. Fall in October. COMPARISON STUDY: Lumbar spine radiograph March 31, 2018. TECHNIQUE: Utilizing a 1.5 Marilee magnet and dedicated coil, multiplanar, multiecho imaging of the lumbar spine was performed without IV contrast. FINDINGS: For purposes of numbering on this exam, the L5-S1 disc space is assigned to axial image 25 of 28. Note is made of 8 mm of anterolisthesis of L4 and L5 likely due to facet arthrosis. Note is made of a mild compression fracture of the L5 vertebral body with 20% loss of vertebral body height centrally. There is marrow edema. There is minimal prevertebral edema. Minimal retropulsion of 2 mm at the superior endplate is noted. There is also a mild fracture involving the inferior endplate of L4 with without significant vertebral body height loss. No additional compression fractures are present. Conus terminates at the L2 level. Redundancy of the lumbar nerve roots is noted due to severe central canal stenosis at L4-L5. A hemangioma is noted within the T12 vertebral body. L1-2: The central canal and neural foramen are patent. L2-3: The central canal and neural foramen are patent. L3-4: There is facet arthrosis with ligamentous hypertrophy. Central canal neural foramen are patent. L4-5: There is 8 mm of anterolisthesis of L4 and L5 due to facet arthrosis. There is slight retropulsion of the superior endplate of L5 due to a compression fracture which is superimposed upon facet arthrosis with ligamentous hypertrophy and uncovering of the disc. These findings result in severe central canal stenosis with compression of the cauda equina. There is mild bilateral neural foraminal stenosis. L5-S1: The central canal and neural foramen are patent. IMPRESSION: 1. Severe central canal stenosis with cauda equina compression at L4-L5. In large part, the findings are likely chronic, related to grade I anterolisthesis with uncovering of the disc, ligamentous hypertrophy and facet arthrosis. However, slight retropulsion of the superior endplate of L5 due to compression fracture increases severity of stenosis. If persistent symptoms, surgical consultation is recommended. Discussed with Wendie Vo at time of dictation. 2. Mild L5 compression fracture which is likely subacute to acute. Minimal inferior endplate compression fracture of L4 without significant vertebral body height loss. Electronically signed by: Brett Schulz M.D. 04/20/2018 8:33 AM Dictated Date/Time: 04/20/2018 7:51 AM
== END | disposition home or self-care (01) ==
LOC: C.MRI 06:40
PROVIDERS: ATTEND Nurse Practitioner Family
DX: M54.16 Radiculopathy, lumbar region (principal); R20.0 Anesthesia of skin; R20.2 Paresthesia of skin

== ENCOUNTER → 2018-04-20 | Outpatient (CLI) | payer OTHER ==
[~2018-04-20] MED LIST changes: +FENTANYL CITRATE INJ 50 MCG/1 ML 2 ML VIAL ONE; +OPTIRAY 320 IV PRN
--- NOTE | 2018-04-20 07:37 | DIAGNOSTIC IMAGING REPORT ---
CT (CHEST) THORAX WITH CT DOSE: 332.07 mGy.cm HISTORY: Sarcoid D86.9 Sarcoidosis TECHNIQUE: Multiaxial CT images of the chest were performed following the intravenous administration of contrast. A dose lowering technique was utilized adhering to the principles of ALARA. COMPARISON: 05/05/2017 FINDINGS: Waxing and waning parenchymal nodularity the nodular density previously described superior segment right lower lobe has resolved. There is been interval development of a new 8 mm nodular density posterior aspect right lower lobe best seen transaxial image 166. Apical pleural thickening unchanged. No significant mediastinal or hilar adenopathy. IMPRESSION: 1. Waxing and waning right lower lobe parenchymal nodularity. 2. Six-month follow-up is suggested 3. Study is otherwise negative. The above report was generated using voice recognition software. It may contain grammatical, syntax or spelling errors. Electronically signed by: Gordon Ace M.D. 04/20/2018 7:35 AM Dictated Date/Time: 04/20/2018 7:18 AM
== END | disposition home or self-care (01) ==
LOC: C.CTS 06:37
PROVIDERS: ATTEND Internal Medicine Pulmonary Disease
DX: D86.9 Sarcoidosis, unspecified (principal)